=== PATIENT | male | born 1950 | race Caucasian/White ===

== ENCOUNTER 2019-08-09 08:33 | Inpatient (IN) ==
[2019-08-09] MEDS ORDERED: VANCOMYCIN IV PER PHARMACY MISC SCH (10:30)
[2019-08-09 10:37] LABS: ALLEN TEST YES; BE 2.6 mmoll (-3.0-3.0); BLOOD TYPE ARTERIAL; HCO3-(ACT) 26.8 mmoll (20.0-26.0); METHB 1.1 % (0.0-1.5); O2(CT) 15.3 mL/dL (15.0-23.0); PCO2(98.6) 48 mmHg (35-45); PO2(98.6) 64 mmHg (60-100); SAMPLE BLOOD; SAO2 95.9 % (95.0-100.0); THB 12.2 g/dL (11.5-17.4); pH(98.6) 7.38 (7.35-7.45)
[2019-08-09 10:38] LABS: MODALITY ROOM AIR
[2019-08-09 10:39] LABS: O2HB 88.9 % (95.0-99.0)
[2019-08-09 11:03] LABS: URINE SOURCE CLEAN CATCH
[2019-08-09 11:05] LABS: BILIRUBIN URINE NEGATIVE (NEGATIVE); BLOOD URINE NEGATIVE (NEGATIVE); COLOR YELLOW; GLUCOSE URINE NEGATIVE (NEGATIVE); KETONE URINE NEGATIVE (NEGATIVE); LEUKOCYTES URINE NEGATIVE (NEGATIVE); NITRITE URINE NEGATIVE (NEGATIVE); PH URINE 6.5; PROTEIN URINE NEGATIVE (NEGATIVE); SP GRAVITY URINE 1.013; TURBIDITY URINE CLEAR (CLEAR); UROBILINOGEN URINE 2 mg/dL (NORMAL)
[2019-08-09 11:07] LABS: UR EPITHELIAL CELLS <10 /HPF (<10); URINE BACTERIA NEGATIVE /HPF; URINE RBC <10 /HPF (<10); URINE WBC <10 /HPF (<10)
[2019-08-09] MEDS: DUONEB (A & A) INH SCH ×3 (11:19→21:35)
--- NOTE | 2019-08-09 11:20 | EKG Report ---
Test Performed on : 08/09/2019 11:13:12 AM Test Reason : Cellulitis Blood Pressure : / mmHG Vent. Rate : 071 BPM Atrial Rate : 071 BPM P-R Int : 154 ms QRS Dur : 078 ms QT Int : 422 ms P-R-T Axes : 056 053 102 degrees QTc Int : 458 ms Normal sinus rhythm. Normal ECG Confirmed by Rob FERREIRA, Otilio Young ([id number]) on 08/10/2019 10:12:46 PM
[2019-08-09] MEDS: LASIX IV SCH (11:32)
[2019-08-09] MEDS: NICODERM PATCH TD SCH (11:32)
[2019-08-09] MEDS: NORCO-10 PO PRN ×2 (11:35→21:19)
[2019-08-09] MEDS: AZACTAM 1 GM in NS 50 ML IV SCH ×2 (12:03→21:20)
[2019-08-09 12:41] LABS: BASO# 0.02 X1000 (0.0-0.2); BASO% 0.3 % (0.0-0.8); EOS# 0.17 X1000 (0.0-0.7); EOS% 2.2 % (0.0-10.0); HEMATOCRIT 39.4 % (42.0-52.0); HEMOGLOBIN 12.6 g/dL (14.0-18.0); IMM GRAN# 0.03 X1000 (0.0-0.04); IMM GRAN% 0.4 % (0.0-0.5); LYMPH% 19.4 % (20.5-51.1); MCH 30.7 PG (27-31); MCV 95.9 FL (81-99); MONO# 0.59 X1000 (0.11-0.59); MONO% 7.6 % (1.7-9.3); MPV 10.1 FL (7.4-10.4); NEUT# 5.41 X1000 (1.4-6.5); NEUT% 70.1 % (42.2-75.2); PLT 223 X1000 (130-400); RBC 4.11 XMIL (4.7-6.1); RDW 13.2 % (11.5-14.5); WBC 7.72 X1000 (4.8-10.8)
--- NOTE | 2019-08-09 12:48 | Diag Imaging Result Doc PS360 ---
EXAM: CHEST-2 VIEWS 08/09/2019 HISTORY: cellulitis TECHNIQUE: Two views of the chest COMMENT: The heart size is at the upper limits of normal. There is no evidence of acute cardiac or pulmonary disease. Compared to 03/06/2019 there has been no significant change in the appearance of the chest. IMPRESSION: No evidence of acute disease. Electronically signed by Yang Vásquez 08/09/2019 12:46 PM
[2019-08-09 12:57] LABS: AGAP 9; ALBUMIN 3.9 g/dL (3.5-5.0); ALKALINE PHOSPHATASE 54 U/L (32-122); BUN 18 mg/dL (8-22); CALCIUM 8.8 mg/dL (8.8-10.2); CHLORIDE 102 mmol/L (98-107); COSMO 283; CREATININE 0.9 mg/dL (0.7-1.2); ESTIMATED GFR > 60; GLUCOSE 133 mg/dL (70-104); GOT 11 U/L (10-34); GPT 10 U/L (10-44); POTASSIUM 4.4 mmol/L (3.5-5.1); SODIUM 140 mmol/L (136-145); TCO2 29 mmol/L (25-35); TOTAL PROTEIN 7.8 g/dL (6.3-8.3)
[2019-08-09] MEDS: NEURONTIN PO SCH ×2 (12:58→17:00)
[2019-08-09] MEDS ORDERED: MOTRIN PO SCH (13:00)
[2019-08-09] MEDS: KENALOG TOP SCH ×2 (14:23→21:20)
[2019-08-09] MEDS ORDERED: VANCOMYCIN 2,000 MG in NS 500 ML IV ONE (14:30)
[2019-08-09] MEDS ORDERED: MOTRIN PO PRN (16:55)
--- NOTE | 2019-08-09 19:32 | HISTORY AND PHYSICAL ---
CHIEF COMPLAINT: Cellulitis of both legs. HISTORY OF PRESENT ILLNESS: Mr. Sanchez is a 69-year-old white gentleman, known case of COPD. Patient had bilateral leg swelling. Complaining of redness of both the legs. Also had blister on the right lower leg. Some fluid was oozing out of it. Patient claimed usually it gets better, but this time it was not. The redness was spreading. Patient was concerned. I evaluated patient in the office yesterday. Offered him hospitalization, but patient could not come yesterday and he decided to come this morning. Patient does have chronic cough with scanty sputum production. Patient is heavy smoker. He denied any calf pain. Patient does have pain in the right knee. At times, his right knee gives away. His pain management MD gave him injection in the right knee, but it did not help. Patient does have chronic pain in the back. Complaining of chronic cough, shortness of breath with exertion, unquantified weight gain, at times polyuria and polydipsia. No dysuria or hematuria. No diarrhea, blood, or mucus in the stool. No runny nose, stuffy nose, sinus drainage. No focal numbness, tingling, weakness. History part was limited. ALLERGIES: Penicillin. HOME MEDICATIONS: Include: 1. [place]. 2. Norvasc. 3. Lasix. 4. Neurontin. 5. Ibuprofen. 6. Lisinopril. 7. Zocor. 8. Aldactone. PAST MEDICAL HISTORY: 1. Chronic low back pain, neck pain, and knee pain. 2. Hypertension. 3. Hyperlipidemia. 4. COPD. 5. Osteoarthritis. 6. Patient had cholecystectomy. FAMILY HISTORY: Both father and mother had Parkinson disease. His sister of massive heart attack at young age. PERSONAL HISTORY: Single. Smokes more than 2 packs per day. Denied alcohol or substance abuse. REVIEW OF SYSTEMS: As per HPI. PHYSICAL EXAMINATION: GENERAL: Elderly white gentleman in no acute distress. VITAL SIGNS: Blood pressure 124/65, pulse 79, respiration 19, temperature 97.7 degrees. HEAD: Atraumatic, normocephalic. EYES: [place] conjunctivae. Anicteric sclerae. Extraocular muscle movement normal. Fundus cannot be penetrated. EARS, NOSE, THROAT: Good oral hygiene. No tonsillopharyngeal congestion or exudate. Ears and nose benign. NECK: Supple. No JVD, thyromegaly, or lymphadenopathy. CHEST: Bibasilar crepitation. Occasional wheezing. CARDIOVASCULAR: S1 and S2 heard. No gallop or thrill. ABDOMEN: Soft, globular. Bowel sounds present. EXTREMITIES: No cyanosis, clubbing. Bilateral leg swelling. Patient does have evidence of cellulitis, both lower legs. On the right leg, he does have some blisters. Peripheral pulsation intact. Crepitation in both knee joints. Tenderness of lumbosacral spine. FILING OR REGISTRY CLERK: Alert, awake, able to move all 4 limbs. LABORATORY DATA: WBC count 7.72, hemoglobin 12.6, hematocrit 39.4, platelet count 223,000. Blood gas: PH 7.38, pCO2 48, pO2 64. Electrolytes were fairly benign. ProBNP was 973. Urinalysis results reviewed. Chest x-ray and EKG noted. CONSIDERATION: 1. Cellulitis, both legs. 2. Chronic obstructive pulmonary disease. 3. Cor pulmonale. 4. Osteoarthritis of the knee. 5. Hypertension. 6. Hyperlipidemia. 7. Chronic pain. 8. Morbid obesity. PLAN: 1. Admit the patient. 2. Intravenous antibiotics. 3. Close observation. 4. Keep legs elevated. 5. I did venous Doppler. Preliminary report was negative for deep venous thrombosis. 6. Overall plan discussed with the patient. 7. Fall precaution. 8. Discussed at length smoking cessation. cc: Parrish Abrams MD
[2019-08-09] MEDS: ZOCOR PO SCH (21:20)
[2019-08-10] MEDS: AZACTAM 1 GM in NS 50 ML IV SCH ×4 (03:32→20:20)
[2019-08-10] MEDS: NORCO-10 PO PRN ×3 (03:37→18:47)
[2019-08-10] MEDS: DUONEB (A & A) INH SCH ×5 (03:40→21:10)
[2019-08-10] MEDS: VANCOMYCIN 1,700 MG in NS 250 ML IV SCH ×2 (04:14→15:02)
[2019-08-10] MEDS: LOVENOX SUBQ SCH (06:37)
[2019-08-10] MEDS: PRILOSEC PO SCH (06:37)
[2019-08-10 08:21] LABS: AGAP 10; ALBUMIN 3.9 g/dL (3.5-5.0); ALKALINE PHOSPHATASE 55 U/L (32-122); BUN 17 mg/dL (8-22); CALCIUM 8.9 mg/dL (8.8-10.2); CHLORIDE 99 mmol/L (98-107); COSMO 279; ESTIMATED GFR > 60; GLUCOSE 130 mg/dL (70-104); GOT 11 U/L (10-34); GPT 9 U/L (10-44); MAGNESIUM 1.8 mg/dL (1.5-2.7); POTASSIUM 4.9 mmol/L (3.5-5.1); SODIUM 138 mmol/L (136-145); TCO2 29 mmol/L (25-35); TOTAL BILIRUBIN 0.41 mg/dL (0.20-1.00); TOTAL PROTEIN 7.7 g/dL (6.3-8.3)
--- NOTE | 2019-08-10 08:38 | PROGRESS NOTE ---
DATE: 08/10/2019 SUBJECTIVE: Mr. Sanchez is feeling some better. Leg swelling improved. The patient does have cellulitis of both the legs with some blistering, much more on the right lower leg. Complaining of significant leg cramps. No high-grade fever or chills. The patient does have some cough. No nausea or vomiting. No diarrhea. Patient admitted with bilateral leg swelling, cellulitis or both the legs, not responding to outpatient treatment. OBJECTIVE: Vital Signs: Noted. Neck: Supple. No JVD. Lungs: Bilateral good air entry present. Cardiovascular: S1 and S2 heard. Abdomen: Soft, globular. Bowel sounds present. The patient does have cellulitis to both the legs. FLOATING OPERATOR: Alert, awake, able to move all 4 limbs. CONSIDERATION: 1. Cellulitis of both the legs. I am going to get wound care nurse to evaluate, especially the blistering area, right leg. 2. Chronic obstructive pulmonary disease. 3. Morbid obesity. 4. Chronic pain. 5. Hypertension. With the leg cramps, I am going to check his electrolytes. Continue rest of the treatment. Close observation. Keep the leg elevated. cc: Parrish Abrams MD
[2019-08-10] MEDS: NICODERM PATCH TD SCH (08:46)
[2019-08-10] MEDS: LASIX IV SCH (08:46)
[2019-08-10] MEDS: NORVASC PO SCH (08:47)
[2019-08-10] MEDS: ALDACTONE PO SCH (08:47)
[2019-08-10] MEDS: NEURONTIN PO SCH ×3 (08:47→17:37)
[2019-08-10] MEDS: PRINIVIL PO SCH (08:47)
[2019-08-10] MEDS: KENALOG TOP SCH (08:47)
[2019-08-10] MEDS: SSD CREAM TOP SCH ×2 (12:17→20:21)
[2019-08-10] MEDS: ZOCOR PO SCH (20:20)
[2019-08-11] MEDS: NORCO-10 PO PRN ×3 (02:13→20:54)
[2019-08-11] MEDS: KENALOG TOP SCH ×3 (02:57→20:47)
[2019-08-11] MEDS: VANCOMYCIN 1,700 MG in NS 250 ML IV SCH (03:08)
[2019-08-11] MEDS: DUONEB (A & A) INH SCH ×4 (03:49→21:54)
[2019-08-11] MEDS: AZACTAM 1 GM in NS 50 ML IV SCH ×3 (04:45→20:58)
[2019-08-11] MEDS: PRILOSEC PO SCH (05:59)
--- NOTE | 2019-08-11 07:59 | PROGRESS NOTE ---
DATE: 08/11/2019 SUBJECTIVE: Mr. Sanchez is feeling better. Leg swelling improving. He denied any fever or chills. Cough and chest congestion improved. Appreciate wound care nurse evaluation and treatment recommendations. No nausea or vomiting. OBJECTIVE: The patient's vital signs as noted.Neck: Supple. No JVD. Lungs: Bibasilar crepitations. Occasional wheezing. CVS: S1 and S2 heard. Abdomen: Soft and globular. Bowel sounds present. Extremities: No cyanosis or clubbing. Leg swelling improved. AGRICULTURE SCIENTIST: Alert, awake, and able to move all 4 limbs. The patient had cellulitis of both the legs. ASSESSMENT AND PLAN: Clinically, seems to be improving. I am going to continue current treatment. Close observation. Keep legs elevated. Plan is to hopefully discharge patient home tomorrow. I will recheck labs this afternoon. Smoking cessation. His other problems include hypertension, chronic pain, and osteoarthritis. Lab data done on 08/10 noted. cc: Parrish Abrams MD
[2019-08-11] MEDS: NEURONTIN PO SCH ×3 (09:18→17:40)
[2019-08-11] MEDS: NORVASC PO SCH (09:18)
[2019-08-11] MEDS: LOVENOX SUBQ SCH (09:18)
[2019-08-11] MEDS: LASIX IV SCH (09:18)
[2019-08-11] MEDS: PRINIVIL PO SCH (09:18)
[2019-08-11] MEDS: NICODERM PATCH TD SCH (09:18)
[2019-08-11] MEDS: ALDACTONE PO SCH (09:18)
--- NOTE | 2019-08-11 11:22 | Carotid Study ---
DATE: 08/09/2019 Previous comparison from 05/07/2017. EQUIPMENT: [employer] Vivid E9 ultrasound system with a 9 L-D transducer. FINDINGS: Images of the bilateral lower extremity venous systems were obtained in both sagittal and transverse planes. Doppler was used to evaluate veins for spontaneity, phasicity, respiratory excursion, and digital augmentation. RESULTS: Normal venous compression, normal venous flow. No obvious superficial or deep venous thrombosis noted. INTERPRETATION: Normal bilateral lower extremity venous study. cc: MD Parrish Garcia MD
[2019-08-11] MEDS: SSD CREAM TOP SCH ×2 (13:58→20:58)
[2019-08-11 18:30] LABS: HEMATOCRIT 38.3 % (42.0-52.0); HEMOGLOBIN 12.2 g/dL (14.0-18.0); MCH 30.5 PG (27-31); MCHC 31.9 g/dL (33-37); MCV 95.8 FL (81-99); WBC 6.99 X1000 (4.8-10.8)
[2019-08-11 18:31] LABS: BASO# 0.02 X1000 (0.0-0.2); BASO% 0.3 % (0.0-0.8); EOS% 2.9 % (0.0-10.0); IMM GRAN# 0.04 X1000 (0.0-0.04); IMM GRAN% 0.6 % (0.0-0.5); LYMPH# 1.35 X1000 (1.2-3.4); LYMPH% 19.3 % (20.5-51.1); MONO% 8.6 % (1.7-9.3); MPV 10.3 FL (7.4-10.4); NEUT# 4.78 X1000 (1.4-6.5); NEUT% 68.3 % (42.2-75.2); PLT 207 X1000 (130-400)
[2019-08-11 19:06] LABS: CALCIUM 9.2 mg/dL (8.8-10.2); CREATININE 1.3 mg/dL (0.7-1.2)
[2019-08-11] MEDS: ZOCOR PO SCH (20:54)
[2019-08-12] MEDS: DUONEB (A & A) INH SCH (03:14)
[2019-08-12] MEDS: AZACTAM 1 GM in NS 50 ML IV SCH (04:23)
[2019-08-12] MEDS: PRILOSEC PO SCH (06:29)
[2019-08-12] MEDS: NORCO-10 PO PRN (06:31)
[2019-08-12 07:51] VITALS: BP 117/68
--- NOTE | 2019-08-12 23:16 | DISCHARGE SUMMARY ---
ADMISSION DATE: 08/09/2019 DISCHARGE DATE: 08/12/2019 FINAL DISCHARGE DIAGNOSIS: 1. Cellulitis of both the legs. 2. Chronic obstructive pulmonary disease. 3. Possible cor pulmonale. 4. Hypertension. 5. Chronic low back pain. 6. Hyperlipidemia. 7. Gastritis. 8. Osteoarthritis. HISTORY OF PRESENT ILLNESS: Mr. Redd is a 69-year-old, white gentleman, known case of chronic low back pain, COPD presented with bilateral leg pain and bilateral leg swelling, which was chronic, evidence of redness both the lower legs, some blisters on the right leg. I evaluated patient in the office. The patient had evidence of cellulitis, stasis dermatitis. He was not responding to outpatient treatment and decided to admit the patient for further care. The patient was started on IV antibiotics, IV Lasix, symptomatic treatment. We kept the legs elevated. Local wound care. His clinical condition gradually improved. Leg swelling improved. The patient diuresed well. Local redness improved. I did wound care nurse to evaluate the patient. She recommended Silvadene cream. Encouraged patient to quit smoking. The patient is doing better. He was nervous and wanted to go home yesterday. I allowed him to sign against medical advice but then patient decided not to. ID evaluated the patient today. His leg was looking better. Encouraged patient to quit smoking. Keep legs elevated. Discussed wound care and I am going to discharge patient home on doxycycline, p.o. Lasix, monitor blood pressure at home. Fall precaution. Offer him home health but patient declined. DISCHARGE PHYSICAL EXAMINATION: Vital signs: Noted. Neck: Supple. No JVD. Lungs: Bilateral good air entry present. Cardiovascular: S1 and S2 heard. Abdomen: Soft, globular. Bowel sounds present. Extremities: Leg swelling improved. Central nervous system: Alert, awake, able to move all 4 limbs. The patient did qualify for home oxygen, and we arranged for home oxygen. LABORATORY DATA: Revealed WBC count 6.99, hemoglobin 12.2, hematocrit 38.3, platelet count 207,000. Admission blood gas: pH 7.38, pCO2 of 48, pO2 was 64. Electrolytes done yesterday. BUN was 30. Creatinine 1.3. Potassium was 5. Vancomycin level checked today and was 20. OVERALL DISCHARGE CONDITION: Satisfactory. DIAGNOSTIC DATA: Patient EKG reviewed. Chest x-ray: No evidence of acute disease. I did venous Doppler, and it was negative for acute DVT. FOLLOWUP: Follow up with me in 4 to 5 days. At that time, we will recheck blood work. In case of more distress, call us back or go to emergency room. cc: Parrish Abrams MD
== END 2019-08-12 08:21 | disposition home or self-care (01) | DRG 603 ==
LOC: DIRADM 08:33 → 1N 09:14
PROVIDERS: ADMIT Internal Medicine; ATTEND Internal Medicine